=== PATIENT | female | born 1980 | race Caucasian/White ===

== ENCOUNTER 2024-04-08 10:29 | Emergency (ER) | payer OTHER ==
[2024-04-08 10:45] VITALS: RESP 20; BMI 55.2
[2024-04-08 13:17] LABS: BASO % 0.2 % (0-2.0); EOS % 1.3 % (0-4.5); HEMATOCRIT 40.3 % (32.4-45.2); LYMPH % 7.3 % (8-40); MCH 27.9 pg (25.7-33.7); MCHC 32.4 g/dl (32.0-36.0); MEAN CELL VOLUME 86.1 fl (80-96); MEAN PLT VOLUME 10.8 fl (7.5-11.1); MONO % 5.8 % (3.8-10.2); NEUT % 85.4 % (42.8-82.8); PLATELET COUNT 170 10^3/uL (134-434); RBC 4.68 M/mm3 (3.60-5.2); RDW 14.9 % (11.6-15.6); WHITE BLOOD COUNT 9.5 K/mm3 (4.0-10.0)
[2024-04-08 13:35] LABS: PH,URINE 6.5 (5.0-8.0); URINE APPEARANCE CLEAR; URINE BILIRUBIN NEGATIVE (NEGATIVE); URINE COLOR YELLOW; URINE GLUCOSE (UA) NEGATIVE (NEGATIVE); URINE KETONE NEGATIVE (NEGATIVE); URINE LEUK ESTERASE NEGATIVE (NEGATIVE); URINE NITRITE NEGATIVE (NEGATIVE); URINE PROTEIN NEGATIVE (NEGATIVE)
[2024-04-08 13:36] LABS: ALBUMIN 3.4 g/dl (3.4-5.0); CALCIUM 8.7 mg/dL (8.5-10.1)
[2024-04-08 13:37] LABS: BLOOD UREA NITROGEN 8.5 mg/dL (7-18)
[2024-04-08 13:37] LABS: HCG,QUALITATIVE URINE Negative
[2024-04-08 13:39] LABS: CREATININE 0.7 mg/dL (0.55-1.3)
[2024-04-08 13:41] LABS: TOT PROT 7.3 g/dl (6.4-8.2)
[2024-04-08 15:04] VITALS: BP 131/75; PULSE 89; TEMP 98.3
== END 2024-04-08 19:08 | disposition home or self-care (01) ==
LOC: JER 10:29
DX: K76.0 Fatty (change of) liver, not elsewhere classified (principal); R10.13 Epigastric pain
CPT/HCPCS: 36415; 71046-TC-FY; 76705-TC; 80053; 81003; 83690; 84484; 84703; 85025; 93005; 93010; 99285-25